=== PATIENT | female | born 1935 | race Asian ===

== ENCOUNTER 2017-11-06 22:13 | Inpatient (IN) | payer OTHER ==
[2017-11-06 23:42] LABS: % EOSINOPHILS 1.6 % (0.0-5.0); % LYMPHOCYTES 14.7 % (20.0-50.0); % MONOCYTES 14.9 % (2.0-10.0); % NEUTROPHILS 68.8 % (40.0-80.0); EOSINOPHILE ABSOLUTE 0.2 Th/cmm (0.1-0.4); HEMATOCRIT 35.9 % (41.0-60); HEMOGLOBIN 12.2 gm/dL (12-16); LYMPHOCYTE ABSOLUTE 1.9 Th/cmm (1.5-3.0); MEAN CELL VOLUME 95.9 fl (81-100); MEAN CORPUSCULAR HEMOGLOBIN 32.6 pg (27.0-31.0); MEAN CORPUSCULAR HGB CONC 33.9 pg (28.0-36.0); MEAN PLATELET VOLUME 6.8 fl; MONOCYTE ABSOLUTE 1.9 Th/cmm (0.3-1.0); NEUTROPHILE ABSOLUTE 8.9 Th/cmm (1.8-8.0); PLATELET COUNT 308 Th/cmm (150-400); RED BLOOD COUNT 3.74 Mil/cmm (3.80-5.20); RED CELL DISTRIBUTION WIDTH 12.4 % (11.5-20.0)
[2017-11-06 23:45] LABS: WHITE BLOOD COUNT 12.9 Th/cmm (4.8-10.8)
--- NOTE | 2017-11-06 23:55 | ED Physician Chart ---
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 was transferred to SNF for rehabilitation and has been doing well. today while ambulating in bathroom and slipped and fell. struck right side of face during fall. no loss of consciousness. no vomiting, no diarrhea. was in stable condition, alert, speaking appropriately. due to recent craniotomy, pt sent to ER for physician omid. pt with some bruising right face. pain is mild, mod - non-radiating. mod factors: none assoc s/s: none hx from pt sister. Allergies:: Allergies Allergy/AdvReac Type Severity Reaction Status Date / Time No Known Allergies Allergy Verified 11/06/17 22:34 Vitals:: Vital Signs - 8 hr 11/06/17 22:23 Temp 100.4 F HR 80 RR 18 BP 139/70 O2 Sat % 93 Historian:: EMS, Family Member (pt sister and EMS) Review:: Nurse's Note Reviewed, EMS run form Reviewed ED Review of Systems - Review of Systems General/Constitutional: Fever, No weight loss, No edema Skin: Bruising (right face bruising after ground level fall) Head: No headache, No light-headedness Eyes: No loss of vision, No pain, No diplopia ENT: No earache, No nasal drainage, No sore throat, No tinnitus Neck: No neck pain Cardio Vascular: No chest pain, No palpitations, No PND, No orthopnea, No edema Pulmonary: No SOB, No cough, No sputum, No wheezing GI: No nausea, No vomiting, No diarrhea, No pain, No melena, No hematochezia, No constipation, No hematemesis G/U: No dysuria, No frequency, No hematuria Musculoskeletal: No bone or joint pain Endocrine: No polyuria Hematopoietic: No bruising, No lymphadenopathy Allergic/Immuno: No urticaria, No angioedema Neurological: No syncope, No focal symptoms, No weakness, No paresthesia, No headache, No seizure, No dizziness, No confusion, No vertigo ED Past Medical History - Past Medical History Past Medical History: HTN, Thyroid disorder, Other (vitamin D, 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 ) Family History: None Social History: Non Smoker, No Alcohol, No Drug Use, Surgical History: other (craniotomy non-malignant tumor removal) Psychiatricy History: None Medication: Reviewed Family Medical History - Family Member Father Living Status: Hx Family Cancer: Yes (lung) ED Physical Exam - Physical Examination General/Constitutional: Awake, Well-developed, well-nourished, Alert, No distress, GCS 15, Non-toxic appearing, Ambulatory Head: Atraumatic Eyes: Lids, conjuctiva normal, PERRL, EOMI Skin: Nl inspection, No rash, No skin lesions, No ecchymosis (mild ecchymosis right upper face (from ground level fall)) ENMT: External ears, nose nl, Nasal exam nl, Lips, teeth, gums nl Neck: Nontender, Full ROM w/o pain, No nuchal rigidity, No stridor Respiratory: Nl effort/Exclusion, Clear to Auscultation, No Wheeze/Rhonchi/Rales Cardio Vascular: RRR, No murmur, gallop, rubs, NL S1 S2 GI: No tenderness/rebounding/guarding, Normal BS's, No McBurney tenderness : No CVA tenderness Extremities: No tenderness or effusion, No edema, Normal digits & nails Neuro/Psych: Alert/oriented, Normal sensory exam, Judgement/insight normal, Normal gait (pt is not fully ambulatory as reported by sister. pt needs help with ambulation and has been in SNF rehab. ), No focal deficits Misc: Normal back, No paraspinal tenderness ED Labs/Radiology/EKG Results - Lab Results Results: Laboratory Tests 11/06/17 23:30 WBC 12.9 H RBC 3.74 L Hgb 12.2 Hct 35.9 L MCV 95.9 MCH 32.6 H MCHC Differential 33.9 RDW 12.4 Plt Count 308 MPV 6.8 Neutrophils % 68.8 Lymphocytes % 14.7 L Monocytes % 14.9 H Eosinophils % 1.6 Basophils % 0.0 - Radiology Results Results: CXR mild haziness bilateral lower lobes cardiomegaly no acute infiltrate no pneumothorax no rib fracture ER READ head CT encephalomalacia right side with - - midline shift to left both ventricles open no acute bleed no acute mass effect recent craniotomy (one week ago) for non-malignant right sided tumor removal. ER READ - EKG Interpretations Comments:: EKG NSR [address] elevation no acute St depression normal axis occasional ventricular premature complexes inferior infarct, old pt with no chest pain and no shortness of breath abnormal EKG ER READ ED Septic Shock - . Is Septic Shock (SBP<90, OR Lactate>4 mmol\L) present?: No - <6hrs of presentation: Vital Signs: Vital Signs - 8 hr 11/06/17 22:23 Temp 100.4 F HR 80 RR 18 BP 139/70 O2 Sat % 93 Assessment of Lungs: Rales Assessment of Heart: RRR EKG Interpretation: NSR Capillary refill evaluation: Capillary refill < 2 secs Skin Exam: Warm, Dry, Good Turgur ED Reassessment (Disposition) - Reassessment Reassessment:: pt in stable condition while in ER. improved after antibiotics Reassessment Condition:: Improved - Diagnosis Diagnosis:: post craniotomy, removal of nonmalignant intracranial mass head trauma with right facial contusion right lower lobe pneumonia, early - Patient Disposition Discharge/Transfer:: Acute Care w/in this hosp Admitted to:: Telemetry Admitting Medical Physician:: Ed Green Time:: 01:25 Condition at Disposition:: Stable, Improved
[2017-11-06 23:59] LABS: ALB/GLOB RATIO 1.3 (1.0-1.8); ALBUMIN 3.5 gm/dL (3.7-5.3); ALKALINE PHOSPHATASE 72 U/L (34-104); ANION GAP 8.6 (7.0-16.0); BUN - UREA NITROGEN 19 mg/dL (7-25); CALCIUM SERUM 8.8 mg/dL (8.6-10.3); CARBON DIOXIDE 25.1 mEq/L (21.0-31.0); CHLORIDE 100 mEq/L (98-107); CREATININE - SERUM 0.7 mg/dL (0.6-1.2); GLUCOSE 134 mg/dL (70-105); POTASSIUM SERUM 3.7 mEq/L (3.5-5.1); SGOT 13 U/L (13-39); SGPT/ALT 24 U/L (7-52); SODIUM SERUM 130 mEq/L (136-145); TOTAL PROTEIN,SERUM 6.2 gm/dL (6.0-8.3)
[2017-11-07] MEDS ORDERED: Levofloxacin 500mg/100mL 500 MG/100 ML BAG IV ONE ×2 (00:02→00:05)
[2017-11-07 00:15] LABS: URINE MICROSCOPIC INDICATED? YES; URINE SOURCE RANDOM
[2017-11-07 00:17] LABS: URINE BILIRUBIN NEGATIVE (NEGATIVE); URINE BLOOD SMALL (NEGATIVE); URINE GLUCOSE (UA) NEGATIVE (NEGATIVE); URINE KETONE NEGATIVE (NEGATIVE); URINE LEUKOCYTE ESTERASE TRACE (NEGATIVE); URINE NITRATE NEGATIVE (NEGATIVE); URINE PROTEIN NEGATIVE (NEGATIVE)
[2017-11-07 00:21] LABS: URINE CLARITY CLEAR (CLEAR); URINE COLOR YELLOW
[2017-11-07 00:24] LABS: URINE BACTERIA FEW /hpf (NONE SEEN); URINE EPITHELIAL CELLS FEW /lpf (FEW); URINE RBC 0-2 /hpf (0-5); URINE WBC 0-2 /hpf (0-5)
[2017-11-07 00:25] LABS: URINE AMORPHOUS SEDIMENT FEW URATES (NONE SEEN)
[2017-11-07] MEDS ORDERED: Sodium Chloride 0.9% 1,000 ML IV ONE (02:40)
--- NOTE | 2017-11-07 07:52 | Diagnostic Imaging Report ---
Portable chest x-ray HISTORY: Pain Heart size difficult to assess with portable technique in a poor inspiration, but appears generous. No definite focal pulmonary parenchymal processes are seen. No hilar or mediastinal abnormalities. IMPRESSION: 1. No definite acute pulmonary processes 2. Suggestion of a degree of cardiomegaly.
--- NOTE | 2017-11-07 08:12 | Diagnostic Imaging Report ---
CT scan of the brain without intravenous contrast HISTORY: Headache, fall, prior surgery, neoplasm Total DLP equals 652 CTDI equals 37.6 Axial sections were obtained from the base of the skull to vertex. Extensive surgical changes with craniotomy defect noted about the right temporal and parietal regions of the skull. There is extensive hypodensity suggesting edema noted within the right frontal, temporal, and parietal regions of the brain. Small air collections noted about the surgical site situated within both extra-axial and parenchymal locations. Linear extra-axial hyperdensity noted adjacent to the surgical site within the right frontal, temporal, parietal regions. Findings may be associated with acute hemorrhage related to surgical sequelae. There is mass effect with slight compression of the right lateral ventricle particularly in the region of the right occipital horn. There is approximately 8 mm of right to left midline shift. Additional hypodensity is noted in the left periventricular white matter regions. These findings are probably chronic. Surgery but still prominent but this area here midline shift with only no dictation fluid, free the patient carpectomy at rest the computer work 5 discussed no evidence of midline for 1 and I think it be related to CTs from last factor 0-I. No easy review IMPRESSION: 1. Extensive surgical changes as noted above 2. Extensive hypodensity suggesting edema within the right frontal, temporal, and parietal regions with mass effect and midline shift as detailed above. Additional small air collections noted within the right frontal and extra-axial regions adjacent to the surgical site. 3. Extra-axial hyperdensity adjacent to the surgical site as noted above. Findings may be associated with surgical sequelae. In view of the patient's history of recent trauma, posttraumatic acute subdural hematoma cannot be excluded. IT IS NECESSARY TO OBTAIN THE PATIENT'S PRIOR MEDICAL RECORDS INCLUDING IMAGING REPORTS AND OF POSSIBLE PRIOR IMAGING STUDIES FOR COMPARISON.
--- NOTE | 2017-11-07 09:21 | History and Physical ---
History of Present Illness - HPI Chief Complaint: [place] down HPI: One week ago patient had a craneotomy, she was send to SNF for rehabilitation. Yesterday she felt down hitting right side of head. Patient was send to ER for Evaluation. During eval was found Infiltrated in base of right lung, Head CT shows edema and encephalomalacia in the right side of brain were surgery was done, no acute bleed, no acute mass effect. 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) GI: Report: No Pertinent Hx Psych: Report: No Pertinent Hx Musculoskeletal: Report: Weakness Rheumatologic: Report: No pertinent Hx Infectious Disease: Report: No Pertinent Hx Renal/: Report: No Pertinent Hx Endocrine: Report: Hyperthyroidism Dermatology: Report: No Pertinent Hx - Past Surgical History Past Surgical History: Other (S/P Craneotomy) Family Medical History - Family Member Father Living Status: Hx Family Cancer: Yes (lung) Social History Smoke: No Alcohol: None Drugs: None Lives: Longterm Domestic Violence: Negative - Medications Home Medications: Home Medication Medication Instructions Recorded Type Atorvastatin Calcium [Lipitor] 10 mg PO DAILY 11/06/17 History Calcium Carbonate/Vitamin D3 1 tab PO TID 11/06/17 History [Oyster Shell 500-Vit D3 200 Tb] Levetiracetam [Keppra] 500 mg PO BID 11/06/17 History Levothyroxine [Synthroid] 0.1 mg PO QDAC 11/06/17 History Losartan Potassium [Cozaar] 50 mg PO DAILY 11/06/17 History amLODIPine Besylate [Norvasc] 5 mg PO DAILY 11/06/17 History - Allergies Allergies/Adverse Reactions: Allergies Allergy/AdvReac Type Severity Reaction Status Date / Time No Known Allergies Allergy Verified 11/06/17 22:34 Review of Systems - Review of Systems Constitutional: Report: Weakness Eyes: Report: No Significant ENT: Report: No Significant Respiratory: Report: No Significant Cardiovascular: Report: No Significant Gastrointestinal: Report: No Significant Genitourinary: Report: No Significant Musculoskeletal: Report: No Significant Skin: Report: No Significant Neurological: Report: Weakness Physical Exam - Physical Exam HEENT: Report: Ears Nose Throat within normal limits, Other (There is a surgical woung in right side of head.) Neck: Report: Within normal limits Cardiovascular Systems: Report: Regular, Rate and Rhythm Respiratory: Report: Rhonchi Abdomen: Report: Non-tender to palpation Back: Report: Inspection of back is within normal limits. Extremities: Report: Non-tender to palpation. Skin: Report: Color of skin is within normal limits Neuro/Psych: Report: Other (Patient is awake, alert, calm, oriented, no muscle deficits.) - Assessment Assessment: Patient is awake, alert, calm, in no acute distress. Dx: S/P fall, hitting right side of head, S/P craneotomy, Brain edema, PNA, Hypothyroidism, HTN. - Plan Plan: Patient in IV NS, IV AB, continue with SNF meds, Consult with Neurology requested. Will continue to monitor.
[2017-11-07] MEDS: Atorvastatin Calcium 10 MG TAB PO SCH (09:32)
[2017-11-07] MEDS: Calcium Carb/Vit D 500 mg/200 U Tab PO SCH ×3 (09:34→21:22)
[2017-11-08] MEDS: Levofloxacin 500mg/100mL 500 MG/100 ML BAG IV SCH ×2 (00:40→23:53)
--- NOTE | 2017-11-08 01:43 | Consultation ---
DATE OF CONSULTATION: 11/07/2017 HISTORY OF PRESENT ILLNESS: The patient is an 82-year-old. The patient had craniotomy done on the right side. About a week and a half, she was in the SNF. She fell down, hit the right side of the head. The patient noted to have infiltrate in the base of the right lung. CT scan showed lot of edema with shift from the right to the left. PAST MEDICAL HISTORY: Hypertension, brain surgery, tumor, hyperthyroidism. SOCIAL HISTORY: Does not smoke or drink. MEDICATIONS: Per reconciliation. PHYSICAL EXAMINATION: VITAL SIGNS: Temperature 98.2, blood pressure 130/74, and pulse is 76. NECK: Supple. No neck bruits. HEART: Sounds S1, S2. LUNGS: Clear. NEUROLOGIC: The patient has a scar over the scalp. The patient is awake. Family by the bedside. The patient gives me her name, her age. The patient able to name a pen and glasses. She knew it is, what day it is, but year she did not, know what month. She knew the date. She did not know what year. She tells me where she lives. CRANIAL: Pupils react to light. Full eye movement, no nystagmus. No facial weakness. MOTOR: She will lift both arms up. I do not see ____, some drift on the left side. INVESTIGATIONS: The patient's CT scan of the head is an abnormal showing some postsurgical changes with some hemorrhage related to surgical sequelae. In addition, there is noted to be extensive edema within the right frontal, temporal, and parietal lobes with mass effect with shift from the right to left, about 80 mm. ASSESSMENT: 1. Brain tumor. 2. Fall. 3. Cerebral edema. The patient at this time discussed with the family. Also, recommend to the primary doctor that the patient should be transferred to a facility where there is neurosurgical available. JOB# [id number]
[2017-11-08 06:44] LABS: EOSINOPHILE ABSOLUTE 0.3 Th/cmm (0.1-0.4); HEMATOCRIT 34.6 % (41.0-60); HEMOGLOBIN 11.7 gm/dL (12-16); LYMPHOCYTE ABSOLUTE 1.3 Th/cmm (1.5-3.0); MEAN CELL VOLUME 95.8 fl (81-100); MEAN CORPUSCULAR HEMOGLOBIN 32.3 pg (27.0-31.0); MEAN CORPUSCULAR HGB CONC 33.7 pg (28.0-36.0); MONOCYTE ABSOLUTE 1.2 Th/cmm (0.3-1.0); NEUTROPHILE ABSOLUTE 4.9 Th/cmm (1.8-8.0); PLATELET COUNT 257 Th/cmm (150-400); RED BLOOD COUNT 3.61 Mil/cmm (3.80-5.20); RED CELL DISTRIBUTION WIDTH 12.1 % (11.5-20.0); WHITE BLOOD COUNT 7.7 Th/cmm (4.8-10.8)
[2017-11-08 06:48] LABS: % BASOPHILS 0.1 % (0.0-2.0); % EOSINOPHILS 3.5 % (0.0-5.0); % LYMPHOCYTES 16.9 % (20.0-50.0); % MONOCYTES 15.9 % (2.0-10.0); % NEUTROPHILS 63.6 % (40.0-80.0)
[2017-11-08] MEDS: Levothyroxine 0.1 Mg Tab PO SCH (06:51)
[2017-11-08 07:02] LABS: ALB/GLOB RATIO 1.1 (1.0-1.8); ALBUMIN 3.2 gm/dL (3.7-5.3); ALKALINE PHOSPHATASE 61 U/L (34-104); ANION GAP 8.3 (7.0-16.0); BILIRUBIN,TOTAL 1.4 mg/dL (0.3-1.0); BUN - UREA NITROGEN 13 mg/dL (7-25); CALCIUM SERUM 8.7 mg/dL (8.6-10.3); CARBON DIOXIDE 24.2 mEq/L (21.0-31.0); CHLORIDE 102 mEq/L (98-107); CREATININE - SERUM 0.6 mg/dL (0.6-1.2); GLUCOSE 119 mg/dL (70-105); POTASSIUM SERUM 3.5 mEq/L (3.5-5.1); SGOT 13 U/L (13-39); SGPT/ALT 20 U/L (7-52); SODIUM SERUM 131 mEq/L (136-145)
[2017-11-08] MEDS: Atorvastatin Calcium 10 MG TAB PO SCH (09:06)
[2017-11-08] MEDS: Calcium Carb/Vit D 500 mg/200 U Tab PO SCH ×3 (09:16→20:37)
--- NOTE | 2017-11-08 12:24 | General Progress Note ---
Subjective - Review of Systems Service Date: 11/08/17 Subjective: I am fine Objective - Results Result Diagrams: 11/08/17 06:15 11/08/17 06:15 Recent Labs: Laboratory Last Values WBC 7.7 Th/cmm (4.8-10.8) 11/08/17 06:15 RBC 3.61 Mil/cmm (3.80-5.20) L 11/08/17 06:15 Hgb 11.7 gm/dL (12-16) L 11/08/17 06:15 Hct 34.6 % (41.0-60) L 11/08/17 06:15 MCV 95.8 fl (81-100) 11/08/17 06:15 MCH 32.3 pg (27.0-31.0) H 11/08/17 06:15 MCHC Differential 33.7 pg (28.0-36.0) 11/08/17 06:15 RDW 12.1 % (11.5-20.0) 11/08/17 06:15 Plt Count 257 Th/cmm (150-400) 11/08/17 06:15 MPV 7.0 fl 11/08/17 06:15 Neutrophils % 63.6 % (40.0-80.0) 11/08/17 06:15 Lymphocytes % 16.9 % (20.0-50.0) L 11/08/17 06:15 Monocytes % 15.9 % (2.0-10.0) H 11/08/17 06:15 Eosinophils % 3.5 % (0.0-5.0) 11/08/17 06:15 Basophils % 0.1 % (0.0-2.0) 11/08/17 06:15 Sodium 131 mEq/L (136-145) L 11/08/17 06:15 Potassium 3.5 mEq/L (3.5-5.1) 11/08/17 06:15 Chloride 102 mEq/L (98-107) 11/08/17 06:15 Carbon Dioxide 24.2 mEq/L (21.0-31.0) 11/08/17 06:15 Anion Gap 8.3 (7.0-16.0) 11/08/17 06:15 BUN 13 mg/dL (7-25) 11/08/17 06:15 Creatinine 0.6 mg/dL (0.6-1.2) 11/08/17 06:15 Est GFR ( Amer) TNP 11/08/17 06:15 Est GFR (Non-Af Amer) TNP 11/08/17 06:15 BUN/Creatinine Ratio 21.7 11/08/17 06:15 Glucose 119 mg/dL (70-105) H 11/08/17 06:15 Whole Bld Lactic Acid 0.75 mmol/L (0.60-1.99) 11/06/17 23:30 Calcium 8.7 mg/dL (8.6-10.3) 11/08/17 06:15 Total Bilirubin 1.4 mg/dL (0.3-1.0) H 11/08/17 06:15 AST 13 U/L (13-39) 11/08/17 06:15 ALT 20 U/L (7-52) 11/08/17 06:15 Alkaline Phosphatase 61 U/L (34-104) 11/08/17 06:15 Total Protein 6.0 gm/dL (6.0-8.3) 11/08/17 06:15 Albumin 3.2 gm/dL (3.7-5.3) L 11/08/17 06:15 Globulin 2.8 gm/dL 11/08/17 06:15 Albumin/Globulin Ratio 1.1 (1.0-1.8) 11/08/17 06:15 Urine Source RANDOM 11/06/17 23:59 Urine Color YELLOW 11/06/17 23:59 Urine Clarity CLEAR (CLEAR) 11/06/17 23:59 Urine pH 7.0 (4.6 - 8.0) 11/06/17 23:59 Ur Specific [place] 1.015 (1.005-1.030) 11/06/17 23:59 Urine Protein NEGATIVE mg/dL (NEGATIVE) 11/06/17 23:59 Urine Glucose (UA) NEGATIVE mg/dL (NEGATIVE) 11/06/17 23:59 Urine Ketones NEGATIVE mg/dL (NEGATIVE) 11/06/17 23:59 Urine Blood SMALL (NEGATIVE) H 11/06/17 23:59 Urine Nitrate NEGATIVE (NEGATIVE) 11/06/17 23:59 Urine Bilirubin NEGATIVE (NEGATIVE) 11/06/17 23:59 Urine Urobilinogen 1.0 E.U./dL (0.2 - 1.0) 11/06/17 23:59 Ur Leukocyte Esterase TRACE (NEGATIVE) H 11/06/17 23:59 Urine RBC 0-2 /hpf (0-5) 11/06/17 23:59 Urine WBC 0-2 /hpf (0-5) 11/06/17 23:59 Ur Epithelial Cells FEW /lpf (FEW) 11/06/17 23:59 Amorphous Sediment FEW URATES (NONE SEEN) 11/06/17 23:59 Urine Bacteria FEW /hpf (NONE SEEN) 11/06/17 23:59 - Physical Exam Vitals and I&O: Vital Signs Temp 96.7 F 11/08/17 10:31 Pulse 82 11/08/17 09:07 Resp 19 11/08/17 10:31 BP 114/41 11/08/17 10:31 Pulse Ox 98 11/08/17 10:31 Intake & Output 11/07/17 11/08/17 11/08/17 18:59 06:59 18:59 Intake Total 300 Balance 300 Weight (lbs) 59.421 kg 59.421 kg Intake: Oral 300 Other: # Voids 5 Stool Characteristics Soft Weight Source Bedscale Bedscale Active Medications: Current Medications Amlodipine Besylate (Norvasc) 5 mg PO DAILY [facility] Stop: 01/06/18 08:59 Last Admin: 11/08/17 09:07 Dose: 5 mg Atorvastatin Calcium (Lipitor) 10 mg PO DAILY [facility] PRN Reason: Protocol Stop: 01/06/18 08:59 Last Admin: 11/08/17 09:06 Dose: 10 mg Calcium/Vitamin D (Oscal W/Vitamin D) 1 tab PO TID [facility] Stop: 01/06/18 08:59 Last Admin: 11/08/17 09:16 Dose: 1 tab Levofloxacin (Levaquin Pb) 500 mg in 100 mls @ 100 mls/hr IV Q24HR [facility] Stop: 01/07/18 00:00 Last Admin: 11/08/17 00:40 Dose: 100 mls/hr Levetiracetam (Keppra) 500 mg PO BID [facility] Stop: 01/06/18 08:59 Last Admin: 11/08/17 09:07 Dose: 500 mg Levothyroxine Sodium (Synthroid) 0.1 mg PO QDAC [facility] Stop: 01/07/18 07:29 Last Admin: 11/08/17 06:51 Dose: 0.1 mg Losartan Potassium (Cozaar) 50 mg PO DAILY [facility] Stop: 01/06/18 08:59 Last Admin: 11/08/17 09:06 Dose: 50 mg General: Alert, Oriented x3, Cooperative, No acute distress HEENT: PERRLA, Other (There is a surgical wound in right side of head) Neck: Supple Cardiovascular: Regular rate Lungs: Clear to auscultation Abdomen: Bowel sounds, Soft Extremities: Other (No edema) Neurological: Normal gait Skin: Other (Warm and dry) Psych/Mental Status: Mental status NL Assessment/Plan - Assessment Assessment: Patient is awake, alert, calm, in no acute distress. Dx: S/P fall, hitting right side of head, S/P craneotomy, Brain edema, PNA, Hypothyroidism, HTN. - Plan Plan: Patient in IV NS, IV AB, continue with SNF meds. Neurology recomended transfer to [facility]. Will continue to monitor.
[2017-11-08] MEDS ORDERED: Magnesium Hydroxide (MOM) 30 mL UDC PO PRN (18:10)
[2017-11-09] MEDS: Levothyroxine 0.1 Mg Tab PO SCH (06:41)
[2017-11-09 07:19] LABS: % EOSINOPHILS 5.8 % (0.0-5.0); % LYMPHOCYTES 18.1 % (20.0-50.0); % MONOCYTES 13.1 % (2.0-10.0); EOSINOPHILE ABSOLUTE 0.6 Th/cmm (0.1-0.4); HEMATOCRIT 34.6 % (41.0-60); LYMPHOCYTE ABSOLUTE 1.7 Th/cmm (1.5-3.0); MEAN CELL VOLUME 94.7 fl (81-100); MEAN CORPUSCULAR HEMOGLOBIN 32.7 pg (27.0-31.0); MEAN CORPUSCULAR HGB CONC 34.6 pg (28.0-36.0); MEAN PLATELET VOLUME 7.3 fl; MONOCYTE ABSOLUTE 1.3 Th/cmm (0.3-1.0); PLATELET COUNT 256 Th/cmm (150-400); RED BLOOD COUNT 3.66 Mil/cmm (3.80-5.20); WHITE BLOOD COUNT 9.6 Th/cmm (4.8-10.8)
[2017-11-09 07:39] LABS: ALB/GLOB RATIO 1.3 (1.0-1.8); ALBUMIN 3.3 gm/dL (3.7-5.3); ALKALINE PHOSPHATASE 60 U/L (34-104); ANION GAP 9.5 (7.0-16.0); BUN - UREA NITROGEN 20 mg/dL (7-25); CALCIUM SERUM 9.5 mg/dL (8.6-10.3); CARBON DIOXIDE 25.5 mEq/L (21.0-31.0); CHLORIDE 102 mEq/L (98-107); CREATININE - SERUM 0.7 mg/dL (0.6-1.2); GLUCOSE 107 mg/dL (70-105); SGOT 13 U/L (13-39); SGPT/ALT 19 U/L (7-52); SODIUM SERUM 133 mEq/L (136-145); TOTAL PROTEIN,SERUM 5.9 gm/dL (6.0-8.3)
--- NOTE | 2017-11-09 08:36 | General Progress Note ---
Subjective - Review of Systems Service Date: 11/09/17 Subjective: I am Ok Objective - Results Result Diagrams: 11/09/17 07:02 11/09/17 07:02 Recent Labs: Laboratory Last Values WBC 9.6 Th/cmm (4.8-10.8) 11/09/17 07:02 RBC 3.66 Mil/cmm (3.80-5.20) L 11/09/17 07:02 Hgb 12.0 gm/dL (12-16) 11/09/17 07:02 Hct 34.6 % (41.0-60) L 11/09/17 07:02 MCV 94.7 fl (81-100) 11/09/17 07:02 MCH 32.7 pg (27.0-31.0) H 11/09/17 07:02 MCHC Differential 34.6 pg (28.0-36.0) 11/09/17 07:02 RDW 12.0 % (11.5-20.0) 11/09/17 07:02 Plt Count 256 Th/cmm (150-400) 11/09/17 07:02 MPV 7.3 fl 11/09/17 07:02 Neutrophils % 63.0 % (40.0-80.0) 11/09/17 07:02 Lymphocytes % 18.1 % (20.0-50.0) L 11/09/17 07:02 Monocytes % 13.1 % (2.0-10.0) H 11/09/17 07:02 Eosinophils % 5.8 % (0.0-5.0) H 11/09/17 07:02 Basophils % 0.0 % (0.0-2.0) 11/09/17 07:02 Sodium 133 mEq/L (136-145) L 11/09/17 07:02 Potassium 4.0 mEq/L (3.5-5.1) 11/09/17 07:02 Chloride 102 mEq/L (98-107) 11/09/17 07:02 Carbon Dioxide 25.5 mEq/L (21.0-31.0) 11/09/17 07:02 Anion Gap 9.5 (7.0-16.0) 11/09/17 07:02 BUN 20 mg/dL (7-25) 11/09/17 07:02 Creatinine 0.7 mg/dL (0.6-1.2) 11/09/17 07:02 Est GFR ( Amer) TNP 11/09/17 07:02 Est GFR (Non-Af Amer) TNP 11/09/17 07:02 BUN/Creatinine Ratio 28.6 11/09/17 07:02 Glucose 107 mg/dL (70-105) H 11/09/17 07:02 Whole Bld Lactic Acid 0.75 mmol/L (0.60-1.99) 11/06/17 23:30 Calcium 9.5 mg/dL (8.6-10.3) 11/09/17 07:02 Total Bilirubin 1.0 mg/dL (0.3-1.0) 11/09/17 07:02 AST 13 U/L (13-39) 11/09/17 07:02 ALT 19 U/L (7-52) 11/09/17 07:02 Alkaline Phosphatase 60 U/L (34-104) 11/09/17 07:02 Total Protein 5.9 gm/dL (6.0-8.3) L 11/09/17 07:02 Albumin 3.3 gm/dL (3.7-5.3) L 11/09/17 07:02 Globulin 2.6 gm/dL 11/09/17 07:02 Albumin/Globulin Ratio 1.3 (1.0-1.8) 11/09/17 07:02 Urine Source RANDOM 11/06/17 23:59 Urine Color YELLOW 11/06/17 23:59 Urine Clarity CLEAR (CLEAR) 11/06/17 23:59 Urine pH 7.0 (4.6 - 8.0) 11/06/17 23:59 Ur Specific [place] 1.015 (1.005-1.030) 11/06/17 23:59 Urine Protein NEGATIVE mg/dL (NEGATIVE) 11/06/17 23:59 Urine Glucose (UA) NEGATIVE mg/dL (NEGATIVE) 11/06/17 23:59 Urine Ketones NEGATIVE mg/dL (NEGATIVE) 11/06/17 23:59 Urine Blood SMALL (NEGATIVE) H 11/06/17 23:59 Urine Nitrate NEGATIVE (NEGATIVE) 11/06/17 23:59 Urine Bilirubin NEGATIVE (NEGATIVE) 11/06/17 23:59 Urine Urobilinogen 1.0 E.U./dL (0.2 - 1.0) 11/06/17 23:59 Ur Leukocyte Esterase TRACE (NEGATIVE) H 11/06/17 23:59 Urine RBC 0-2 /hpf (0-5) 11/06/17 23:59 Urine WBC 0-2 /hpf (0-5) 11/06/17 23:59 Ur Epithelial Cells FEW /lpf (FEW) 11/06/17 23:59 Amorphous Sediment FEW URATES (NONE SEEN) 11/06/17 23:59 Urine Bacteria FEW /hpf (NONE SEEN) 11/06/17 23:59 - Physical Exam Vitals and I&O: Vital Signs Temp 97.5 F 11/09/17 04:00 Pulse 72 11/09/17 04:00 Resp 18 11/09/17 04:00 BP 110/49 11/09/17 04:00 Pulse Ox 98 11/09/17 04:00 Intake & Output 11/08/17 11/09/17 11/09/17 18:59 06:59 18:59 Intake Total 700 340 Balance 700 340 Weight (lbs) 59.421 kg 56.699 kg Intake: Intake, IV Amount 100 Levofloxacin 500mg/100mL 100 500 mg In 100 ml @ 100 mls/hr IV Q24HR [facility] Rx#: [id number] Oral 700 240 Other: # Voids 4 3 # Bowel Movements 0 Weight Source Bedscale Bedscale Active Medications: Current Medications Amlodipine Besylate (Norvasc) 5 mg PO DAILY [facility] Stop: 01/06/18 08:59 Last Admin: 11/08/17 09:07 Dose: 5 mg Atorvastatin Calcium (Lipitor) 10 mg PO DAILY [facility] PRN Reason: Protocol Stop: 01/06/18 08:59 Last Admin: 11/08/17 09:06 Dose: 10 mg Calcium/Vitamin D (Oscal W/Vitamin D) 1 tab PO TID [facility] Stop: 01/06/18 08:59 Last Admin: 11/08/17 20:37 Dose: 1 tab Levofloxacin (Levaquin Pb) 500 mg in 100 mls @ 100 mls/hr IV Q24HR [facility] Stop: 01/07/18 00:00 Last Infusion: 11/09/17 00:53 Dose: Infused Levetiracetam (Keppra) 500 mg PO BID [facility] Stop: 01/06/18 08:59 Last Admin: 11/08/17 16:38 Dose: 500 mg Levothyroxine Sodium (Synthroid) 0.1 mg PO QDAC [facility] Stop: 01/07/18 07:29 Last Admin: 11/09/17 06:41 Dose: 0.1 mg Losartan Potassium (Cozaar) 50 mg PO DAILY [facility] Stop: 01/06/18 08:59 Last Admin: 11/08/17 09:06 Dose: 50 mg Magnesium Hydroxide (Milk Of Magnesia) 30 ml PO HS PRN PRN Reason: Constipation Stop: 01/07/18 18:09 General: Alert, Oriented x3, Cooperative, No acute distress HEENT: PERRLA, Other (There is a surgical wound in right side of head) Neck: Supple Cardiovascular: Regular rate Lungs: Clear to auscultation Abdomen: Bowel sounds, Soft Extremities: Other (No edema) Neurological: Normal gait Skin: Other (Warm and dry) Psych/Mental Status: Mental status NL Assessment/Plan - Assessment Assessment: Patient is awake, alert, calm, in no acute distress. Dx: S/P fall, hitting right side of head, S/P craneotomy, Brain edema, PNA, Hypothyroidism, HTN. - Plan Plan: Patient in IV NS, IV AB, continue with SNF meds. Awaiting transfer to [facility]. Will continue to monitor.
[2017-11-09] MEDS: Atorvastatin Calcium 10 MG TAB PO SCH (09:53)
[2017-11-09] MEDS: Calcium Carb/Vit D 500 mg/200 U Tab PO SCH (09:54)
--- NOTE | 2017-11-09 10:17 | Diagnostic Imaging Report ---
Exam: CT examination of brain HISTORY: Cerebral edema Total DLP equals 573 CTDI equals 3.7 Findings: Multiple contiguous thin section of the brain were obtained from the base of skull to the vertex without the administration intravenous contrast material compared to prior examination of 11/06/2017. The study demonstrates extensive right-sided the temporoparietal craniotomy craniectomy changes. Again noted hypodensity with edema in the right frontal temporal parietal regions with a mild mass effect and compression lateral of the right lateral ventricle with approximately 6 mm left-sided shift. Small air collection is again noted most likely postoperative. Linear extra-axial hyperdensity adjacent to the surgical site might represent the hemorrhage related to surgical intervention. IMPRESSION: Essentially unchanged compared to prior examination of the 11/06/2017, extensive postsurgical changes right temporoparietal lobe with large area of edema hypodensity and the midline shift to the left approximately 6 mm. Unchanged appearance of the hyperdensity might be associated with acute hemorrhage related to surgical sequela. The exam is recommended.
--- NOTE | 2017-11-10 08:41 | Discharge Summary ---
General Discharge Summary - Discharge Summary Date of Admission: 11/06/17 Admitting Diagnosis: Nnamdi combs, S/P craneotomy, Brain edema, PNA, HTN, hypothyroidism Discharge Date: 11/09/17 Discharge Diagnosis: S/P fall hitting right side of head, S/P Craniotomy, Brain edema, PNA, HTN, hypothyroidism Hospital Course: patient was admitted and she was stable, responding to treatment, Due to brain edema she was transfer to an upper level of care. Treatment: She was started in IV NS, AB, she was continue with SNF meds. She was evaluated by Neurology. Condition at Discharge: Stable Disposition: TRANSFER TO ACUTE HOSP Home Medications: Home Medication Medication Instructions Recorded Type Calcium Carbonate/Vitamin D3 1 tab PO TID 11/06/17 History [Oyster Shell 500-Vit D3 200 Tb] Atorvastatin Calcium [Lipitor] 10 mg PO DAILY tab 11/09/17 Rx Levetiracetam [Keppra] 500 mg PO BID tab 11/09/17 Rx Levofloxacin 500mg/100mL [Levaquin 500 mg IV Q24HR bag 11/09/17 Rx PB] Levothyroxine [Synthroid] 0.1 mg PO QDAC tab 11/09/17 Rx Losartan Potassium [Cozaar] 50 mg PO DAILY tab 11/09/17 Rx Magnesium Hydroxide [Milk of 30 ml PO HS PRN udc 11/09/17 Rx Magnesia] amLODIPine Besylate [Norvasc] 5 mg PO DAILY tab 11/09/17 Rx Activity: Bed Rest Discharge Diet: 2 Gram Sodium Consults and Follow-Up: BECKY VEGAS [Other] not on staff,PCP is [Primary Care Provider] - Consulting Speciality: Neurology Instructions: Head Injury, Adult, [id number], Hypertension, Pneumonia, Adult , [id number]
== END 2017-11-09 11:10 | disposition short-term general hospital (02) | DRG 80 ==
LOC: ER 22:13 → TELE 11-07 01:25
PROVIDERS: ADMIT General Practice; ATTEND General Practice
DX: G93.6 Cerebral edema (principal); J18.1 Lobar pneumonia, unspecified organism; R65.10 Systemic inflammatory response syndrome (SIRS) of non-infectious origin without acute organ dysfunction; E03.9 Hypothyroidism, unspecified; I10 Essential (primary) hypertension; E07.9 Disorder of thyroid, unspecified; S09.90XA Unspecified injury of head, initial encounter; S00.83XA Contusion of other part of head, initial encounter; W18.39XA Other fall on same level, initial encounter; E55.9 Vitamin D deficiency, unspecified; W01.0XXA Fall on same level from slipping, tripping and stumbling without subsequent striking against object, initial encounter; R56.9 Unspecified convulsions; Z80.1 Family history of malignant neoplasm of trachea, bronchus and lung; Y93.89 Activity, other specified; Y99.8 Other external cause status; Y92.121 Bathroom in nursing home as the place of occurrence of the external cause
CPT/HCPCS: 36415-UA; 70450-TC; 71045-TC; 80053-TC; 81001-TC; 83051-90; 83605; 85025-TC; 93005; J1956; J7030; Z7610